=== PATIENT | male | born 1970 | race Caucasian/White ===

== ENCOUNTER 2021-10-22 02:48 | Emergency (ER) | payer OTHER ==
[~2021-10-22] VITALS: Ht 172.7 cm; Wt 85.3 kg
[2021-10-22] MEDS ORDERED: LOSARTAN POTASS50 MG (03:01)
[2021-10-22] MEDS ORDERED: KETO10TA2 PO (04:53)
== END 2021-10-22 05:49 | disposition home or self-care (01) ==
LOC: ER 02:48
DX: S82.61XA Displaced fracture of lateral malleolus of right fibula, initial encounter for closed fracture (principal); S93.04XA Dislocation of right ankle joint, initial encounter; X58.XXXA Exposure to other specified factors, initial encounter; Y93.89 Activity, other specified; Y92.89 Other specified places as the place of occurrence of the external cause; M25.571 Pain in right ankle and joints of right foot